=== PATIENT | female | born 1975 | race Caucasian/White ===

== ENCOUNTER 2024-01-19 15:47 | Outpatient (RCR) | payer OTHER, SELFPAY ==
[2024-01-19 11:23] LABS: % Basophils 1.2 % (0-2); % Immature Granulocytes 0.3 % (0-0.5); % Lymphocytes 22.1 % (20.5-51.1); % Monocytes 8.6 % (1.7-9.3); % Neutrophils 62.8 % (42.2-75.2); Absolute Basophils 0.1 10^3/uL (0-0.2); Absolute Eosinophils 0.5 10^3/uL (0-0.7); Absolute Monocytes 0.8 10^3/uL (0.1-0.6); Absolute Neutrophils 5.7 10^3/uL (1.4-6.5); Hematocrit 28.3 % (37.0-47.0); Hemoglobin 8.6 g/dL (12.0-16.0); Mean Corp Hgb Conc. 30.4 g/dL (33.0-37.0); Mean Corpuscular Hgb 19.4 pg (27.0-31.0); Mean Corpuscular Volume 63.7 fL (81.0-99.0); Nucleated Red Blood Cells % 0 %; Red Blood Cell Count 4.44 10^6/uL (4.20-5.40)
[2024-01-19 11:44] LABS: Mean Platelet Volume 11.1 fL (7.4-10.4); Platelet Count 518 10^3/uL (130-400)
== END 2024-02-14 23:59 | disposition home or self-care (01) ==
LOC: OID 15:47
PROVIDERS: ATTENDING PHYSICIAN Internal Medicine Hematology & Oncology
DX: D50.9 Iron deficiency anemia, unspecified (principal); N92.4 Excessive bleeding in the premenopausal period
CPT/HCPCS: 85025

== ENCOUNTER → 2024-01-21 08:19 | Outpatient (REF) | payer OTHER, SELFPAY | LOC: RAD 08:19 | PROVIDERS: ATTENDING PHYSICIAN Physician Assistant; FAMILY PHYSICIAN Physician Assistant | DX: R10.11 Right upper quadrant pain (principal); R87.618 Other abnormal cytological findings on specimens from cervix uteri | CPT/HCPCS: 76700; 76830 ==

== ENCOUNTER → 2024-01-23 06:29 | Day surgery (SDC) | payer OTHER, SELFPAY | LOC: GI 06:29 | PROVIDERS: ATTENDING PHYSICIAN Internal Medicine Gastroenterology; FAMILY PHYSICIAN Physician Assistant | DX: D50.9 Iron deficiency anemia, unspecified (principal); K64.8 Other hemorrhoids; K31.89 Other diseases of stomach and duodenum; K29.50 Unspecified chronic gastritis without bleeding; Z98.84 Bariatric surgery status | CPT/HCPCS: 45378; 43239; 88305; 88342 ==

== ENCOUNTER → 2024-03-19 06:21 | Day surgery (SDC) | payer OTHER, SELFPAY | LOC: GI 06:21 | PROVIDERS: ATTENDING PHYSICIAN Internal Medicine Gastroenterology | DX: D50.9 Iron deficiency anemia, unspecified (principal); Z98.84 Bariatric surgery status; R93.3 Abnormal findings on diagnostic imaging of other parts of digestive tract | CPT/HCPCS: 44360 ==